=== PATIENT | male | born 2000 | race African-American/Black ===

== ENCOUNTER 2020-05-15 22:04 | Emergency (ER) | payer MEDICAID ==
[~2020-05-15] VITALS: Ht 177.8 cm; Wt 71.0 kg
[~2020-05-15 22:04] MED LIST: GUAN1TAB
[2020-05-15] MEDS ORDERED: ALBUTEROL (0.083%) 2.5MG/3ML NEB HHN STA (22:40)
[2020-05-15] MEDS ORDERED: PREDNISONE 20MG TABLET PO STA (22:40)
[2020-05-15] MEDS ORDERED: IPRATROPIUM BROMIDE (0.02%) 0.5MG/2.5ML NEB HHN STA (22:40)
[2020-05-15 23:27] VITALS: BP 115/68
== END 2020-05-16 00:05 | disposition home or self-care (01) ==
LOC: ER 22:04
DX: J45.901 Unspecified asthma with (acute) exacerbation (principal); Z76.0 Encounter for issue of repeat prescription
CPT/HCPCS: 71045; 94640; 99283; J7512; Z7610

== ENCOUNTER 2020-09-02 23:57 | Emergency (ER) | payer MEDICAID ==
[~2020-09-02] VITALS: Ht 175.3 cm; Wt 78.0 kg
[2020-09-03] MEDS ORDERED: IPRATROPIUM BROMIDE (0.02%) 0.5MG/2.5ML NEB HHN STA (00:24)
[2020-09-03] MEDS ORDERED: PREDNISONE 20MG TABLET PO STA (00:24)
[2020-09-03] MEDS ORDERED: ALBUTEROL (0.083%) 2.5MG/3ML NEB HHN STA (00:24)
[2020-09-03] MEDS ORDERED: ALBU18HF2 INH (01:28)
[2020-09-03] MEDS ORDERED: LEVA15HF4 IH (01:28)
[2020-09-03] MEDS ORDERED: P50 MT (01:28)
[2020-09-03] MEDS ORDERED: BECL10.6 INH (01:35)
[2020-09-03 01:39] VITALS: BP 115/68
== END 2020-09-03 01:43 | disposition home or self-care (01) ==
LOC: ER 23:57
DX: J45.901 Unspecified asthma with (acute) exacerbation (principal)
CPT/HCPCS: 94640; 99283; J7512; Z7610

== ENCOUNTER 2020-10-08 11:54 | Emergency (ER) | payer MEDICAID ==
[~2020-10-08] VITALS: Ht 182.9 cm; Wt 80.0 kg
[~2020-10-08 11:54] MED LIST changes: +ALBU18HF2 INH; +BECL10.6 INH; +LEVA15HF4 IH; +P50 MT
[2020-10-08] MEDS ORDERED: KETOROLAC 30MG/ML VIAL IV STA (12:05)
[2020-10-08] MEDS ORDERED: SODIUM CHLORIDE 0.9% 1,000 ML IV ONE (12:15)
[2020-10-08 12:31] LABS: BASOPHILS % 0.8 % (0.0-2.0); EOSINOPHILS % 3.7 % (0.0-5.0); HEMATOCRIT. 49.5 % (42.0-52.0); HEMOGLOBIN. 16.5 g/dL (14.0-18.0); LYMPHOCYTES % 47.9 % (20.0-50.0); MEAN CORPUSCULAR HEMOGLOBIN 27.2 pg (28.0-32.0); MEAN CORPUSCULAR VOLUME 81.3 fL (80.0-94.0); MEAN PLATELET VOLUME 7.1 fl (7.4-10.4); MONOCYTES % 9.4 % (2.0-8.0); NEUTROPHILS % 38.2 % (40.0-76.0); PLATELET 296 x1000/uL (130-400); RED BLOOD CELL COUNT 6.09 mill/uL (4.7-6.1); RED CELL DISTRIBUTION WIDTH 13.3 % (11.6-14.6)
[2020-10-08 12:35] LABS: CHLORIDE 105 mEq/L (98-107)
[2020-10-08 12:37] LABS: INR 1.1; PROTHROMBIN TIME 11.6 sec (9.6-11.0)
[2020-10-08 12:41] LABS: C REACTIVE PROTEIN QUANT 0.4 mg/L (0.0-3.0)
[2020-10-08] MEDS ORDERED: DICYCLOMINE HCL 10MG CAPSULE PO NR (15:45)
[2020-10-08] MEDS ORDERED: DICY10CA88 MT (16:04)
[2020-10-08] MEDS ORDERED: IBUP-2028 MT (16:04)
[2020-10-08] MEDS ORDERED: ONDA4TAB5 MT (16:04)
[2020-10-08] MEDS ORDERED: IBUPROFEN 400MG TABLET PO ONE (16:15)
[2020-10-08 16:51] VITALS: BP 122/78
== END 2020-10-08 16:52 | disposition home or self-care (01) ==
LOC: ER 12:53
DX: R10.84 Generalized abdominal pain (principal); R94.5 Abnormal results of liver function studies
CPT/HCPCS: 36415; 76705; 80053; 83605; 83690; 85025; 85610; 86140; 93005; 96361; 96374; 99285; J1885; J7030

== ENCOUNTER 2021-08-25 17:06 | Emergency (ER) | payer MEDICAID ==
[~2021-08-25] VITALS: Ht 175.3 cm; Wt 77.0 kg
[~2021-08-25 17:06] MED LIST changes: +DICY10CA88 MT; +IBUP-2028 MT; +ONDA4TAB5 MT
[2021-08-25 17:08] VITALS: BP 133/79
[2021-08-25] MEDS ORDERED: IPRATROPIUM BROMIDE (0.02%) 0.5MG/2.5ML NEB HHN STA (17:44)
[2021-08-25] MEDS ORDERED: PREDNISONE 20MG TABLET PO STA (17:44)
[2021-08-25] MEDS ORDERED: ALBUTEROL (0.083%) 2.5MG/3ML NEB HHN STA (17:44)
[2021-08-25] MEDS ORDERED: ALBU18HF2 INH (19:55)
[2021-08-25] MEDS ORDERED: P50 MT (19:55)
[2021-08-25] MEDS ORDERED: BECL10.6 INH (19:55)
== END 2021-08-25 20:19 | disposition home or self-care (01) ==
LOC: ER 17:06
DX: J45.901 Unspecified asthma with (acute) exacerbation (principal)
CPT/HCPCS: 94644; 99285; J7512; Z7610

== ENCOUNTER 2022-02-08 09:18 | Emergency (ER) | payer MEDICAID ==
[~2022-02-08] VITALS: Ht 175.3 cm; Wt 91.0 kg
[2022-02-08] MEDS ORDERED: PREDNISONE 20MG TABLET PO STA (09:40)
[2022-02-08] MEDS ORDERED: ALBUTEROL (0.083%) 2.5MG/3ML NEB HHN STA (09:40)
[2022-02-08 09:59] VITALS: BP 112/70
[2022-02-08 11:05] LABS: BASOPHILS % 0.6 % (0.0-2.0); EOSINOPHILS % 2.4 % (0.0-5.0); HEMATOCRIT. 46.8 % (42.0-52.0); HEMOGLOBIN. 15.7 g/dL (14.0-18.0); LYMPHOCYTES % 29.6 % (20.0-50.0); MEAN CORPUSCULAR HEMOGLOBIN 27.7 pg (28.0-32.0); MEAN CORPUSCULAR VOLUME 82.3 fL (80.0-94.0); MONOCYTES % 9.8 % (2.0-8.0); NEUTROPHILS % 57.6 % (40.0-76.0); PLATELET 300 x1000/uL (130-400); RED BLOOD CELL COUNT 5.68 mill/uL (4.7-6.1); RED CELL DISTRIBUTION WIDTH 13.3 % (11.6-14.6)
[2022-02-08 11:17] LABS: CHLORIDE 104 mEq/L (98-107)
[2022-02-08] MEDS ORDERED: ALBUTEROL (0.083%) 2.5MG/3ML NEB HHN NR (11:31)
[2022-02-08] MEDS ORDERED: PREDNISONE 20MG TABLET PO NR (11:32)
[2022-02-08] MEDS ORDERED: ALBU2.5V13 NEB (11:55)
[2022-02-08] MEDS ORDERED: P50 MT (11:55)
[2022-02-08] MEDS ORDERED: ALBU6.7H9 INH (11:55)
== END 2022-02-08 12:35 | disposition home or self-care (01) ==
LOC: ER 09:18
DX: J45.901 Unspecified asthma with (acute) exacerbation (principal); Z79.899 Other long term (current) drug therapy
CPT/HCPCS: 36415; 71045; 80053; 85025; 93005; 94640; 99285; J7512; Z7610